=== PATIENT | female | born 1980 | race Caucasian/White ===

== ENCOUNTER 2017-09-07 07:57 | Inpatient (IN) | payer OTHER ==
[2017-09-07] VITALS (7 sets, daily range): BP systolic 132–180; BP diastolic 71–91
[~2017-09-07] VITALS: Ht 160 cm; Wt 91.0 kg
[~2017-09-07 07:57] MED LIST: BCP; HYDROCODON-ACE1 EAC7 PO; SEASONIQUE 01 TABLET PO; ZOLOFT100 MG PO
[2017-09-07 12:55] LABS: APPEARANCE CLOUDY ((CLEAR)); BILIRUBIN NEGATIVE; BLOOD LARGE; COLOR AMBER ((YELLOW)); GLUCOSE (STRIP) NEGATIVE; KETONES 5; LEUKOCYTES LARGE; NITRITE NEGATIVE; PROTEIN (STRIP) 100; SPECIFIC GRAVITY 1.021 (1.000-1.030); UROBILINOGEN 0.2 MG/DL (0.2-1.0)
[2017-09-07 13:09] LABS: EPITHELIAL CELLS 2+ /HPF; MUCUS NONE SEEN /LPF; WHITE BLOOD CELLS 40-50 /HPF (0-5)
[2017-09-07 13:10] LABS: BACTERIA 3+ /HPF; UCUL ADDED? YES
[2017-09-07 13:35] LABS: AMPHETAMINE NEGATIVE (500 ng/mL); BARBITURATES NEGATIVE (200 ng/mL); BENZODIAZEPINES NEGATIVE (150 ng/mL); BUPRENORPHINE NEGATIVE (10 ng/mL); COCAINE NEGATIVE (150 ng/mL); METHADONE NEGATIVE (200 ng/mL); METHAMPHETAMINE NEGATIVE (500 ng/mL); OPIATES (MORPHINE) NEGATIVE (100 ng/mL); OXYCODONE NEGATIVE (100 ng/mL); PHENCYCLIDINE NEGATIVE (25 ng/mL); PROPOXYPHENE NEGATIVE (300 ng/mL); THC CANNABINOIDS NEGATIVE (50 ng/mL); TRICYCLIC ANTIDEPRESSANTS NEGATIVE (300 ng/mL)
[2017-09-07] MEDS ORDERED: ENDOCET 5-3251 EACH PO (14:22)
[2017-09-07] MEDS ORDERED: IBUPROFEN800 MG PO (14:22)
[2017-09-07 21:53] LABS: HEMATOCRIT 34.3 % (36.0-46.0); HEMOGLOBIN 12.3 G/DL (11.9-15.5); MCH 30.7 PG (29.0-34.0); MCHC 35.9 G/DL (30.0-36.0); MCV 85.5 FL (83-99); PLATELET COUNT 195 K/uL (156-360); RBC DIS.WIDTH-CV 12.9 % (11.8-14.6); RBC DIS.WIDTH-SD 39.8 % (39-53); RED BLOOD COUNT 4.01 M/uL (3.80-5.20); WHITE BLOOD COUNT 13.9 K/uL (4.1-10.2)
[2017-09-07 22:16] LABS: ALBUMIN 2.8 G/DL (3.2-4.8); ALKALINE PHOSPHATASE 131 IU/L (3-129); ALT (GPT) 15 IU/L (3-49); AST (GOT) 32 IU/L (2-34); CHLORIDE 106 MEQ/L (99-109); CREATININE 0.5 MG/DL (0.6-1.3); GFR ESTIMATE (CALCULATED) > 59 mL/min/; GLUCOSE 96 mg/dL (70-99); POTASSIUM 3.6 MEQ/L (3.7-5.4); SODIUM 137 MEQ/L (136-147); TOTAL BILIRUBIN 0.6 MG/DL (0.0-1.0); UREA NITROGEN (BUN) 7 mg/dL (9-23)
[2017-09-08 02:56] VITALS: BP 124/65
[2017-09-08 07:02] LABS: BASOPHIL (%) 0.2 % (0-1); EOSINOPHIL (%) 0.1 % (0-5); HEMATOCRIT 25.4 % (36.0-46.0); IMMATURE GRANULOCYTE (%) 0.4 % (0.0-0.7); LYMPHOCYTE (%) 13.8 % (15-42); LYMPHOCYTE COUNT 1.4 K/uL (1.0-2.8); MCH 30.6 PG (29.0-34.0); MCHC 35.4 G/DL (30.0-36.0); MCV 86.4 FL (83-99); MONOCYTE (%) 5.9 % (3-12); MONOCYTE COUNT 0.6 K/uL (0-0.8); NEUTROPHIL (%) 79.6 % (45-76); NEUTROPHIL COUNT 8.1 K/uL (1.8-6.4); RBC DIS.WIDTH-CV 12.6 % (11.8-14.6); RBC DIS.WIDTH-SD 39.6 % (39-53); WHITE BLOOD COUNT 10.2 K/uL (4.1-10.2)
[2017-09-08 07:08] LABS: RED BLOOD COUNT 2.94 M/uL (3.80-5.20)
[2017-09-08 07:13] LABS: PLAT.SUFFICIENCY DECREASED
[2017-09-08 07:23] LABS: PLATELET COUNT 134 K/uL (156-360)
[2017-09-08 07:33] VITALS: BP 110/62
[2017-09-08 10:32] VITALS: BP 105/58
[2017-09-08 15:23] VITALS: BP 125/58
[2017-09-08 19:18] VITALS: BP 113/64
[2017-09-08 22:48] VITALS: BP 144/68
[2017-09-09 02:25] VITALS: BP 120/73
[2017-09-09 07:28] VITALS: BP 121/63
[2017-09-09 11:25] VITALS: BP 145/77
[2017-09-09 14:41] VITALS: BP 139/69
[2017-09-10 07:33] VITALS: BP 138/72
[2017-09-10 15:57] VITALS: BP 131/84
[2017-09-10 23:06] VITALS: BP 184/97
[2017-09-10 23:36] VITALS: BP 138/90
[2017-09-11 01:58] VITALS: BP 159/73
[2017-09-11 16:31] VITALS: BP 158/94
[2017-09-11 19:50] VITALS: BP 134/82
[2017-09-11] MEDS ORDERED: LABETALOL HCL200 MG PO (20:36)
== END 2017-09-11 22:30 | disposition home or self-care (01) | DRG 765 ==
LOC: 2WEST 07:57 → 2SOUTH 07:58 → 2WEST 10:51
PROVIDERS: Obstetrics & Gynecology Obstetrics
PROC: 10D00Z1 Extraction of Products of Conception, Low, Open Approach (ICD-10-PCS; principal; 2017-09-07)
DX: O60.14X1 Preterm labor third trimester with preterm delivery third trimester, fetus 1 (principal); O60.14X2 Preterm labor third trimester with preterm delivery third trimester, fetus 2; O40.3XX2 Polyhydramnios, third trimester, fetus 2; O69.81X1 Labor and delivery complicated by cord around neck, without compression, fetus 1; O69.89X2 Labor and delivery complicated by other cord complications, fetus 2; O32.1XX1 Maternal care for breech presentation, fetus 1; O32.8XX2 Maternal care for other malpresentation of fetus, fetus 2; O36.5932 Maternal care for other known or suspected poor fetal growth, third trimester, fetus 2; O36.5931 Maternal care for other known or suspected poor fetal growth, third trimester, fetus 1; O30.043 Twin pregnancy, dichorionic/diamniotic, third trimester; Z3A.36 36 weeks gestation of pregnancy; Z37.2 Twins, both liveborn; Z87.891 Personal history of nicotine dependence; Z82.49 Family history of ischemic heart disease and other diseases of the circulatory system
CPT/HCPCS: 80053; 81003; 85025; 85027; 86850; 86900; 86901; 87086; 88307; J0690; J1170; J1885; J2210; J2274; J2405; J2590; J2765; J3010; J7120